=== PATIENT | female | born 1950 | race Caucasian/White ===

== ENCOUNTER → 2019-10-14 09:52 | Outpatient (BNVA) | payer MEDICARE, OTHER, SELFPAY | PROVIDERS: Family Provider Nurse Practitioner Family; Visit Provider Nurse Practitioner | DX: M25.571 Pain in right ankle and joints of right foot (principal); M85.88 Other specified disorders of bone density and structure, other site; M85.871 Other specified disorders of bone density and structure, right ankle and foot | CPT/HCPCS: 73610; 73630 ==

== ENCOUNTER 2020-03-16 11:11 | Inpatient (IN) | payer MEDICARE, OTHER, SELFPAY ==
--- NOTE | 2020-03-16 11:20 | XR_ITS ---
WS: [id number] EXAM: AP CHEST: PORTABLE UPRIGHT DATE OF EXAM: 03/16/2020, 1131 hours COMPARISON: NONE HISTORY: Patient is 69 years old with shortness of breath. FINDINGS: The cardiac silhouette is considered upper limits of normal to minimally enlarged. The mediastinal contours are normal. The pulmonary vascularity is normal. Scattered calcified granulomas changes seen in both lungs. Slight chronic lung changes are demonstrated. Lungs are clear of a large area of consolidation. Presumed some minimal atelectasis versus prominent pericardial fat pad left heart bord er. There is no effusion or pneumothorax. Scattered changes of arthritis are seen in the spine. XR/XR chest 1V portable [id number] IMPRESSION: Borderline to mild cardiomegaly. Either prominent pericardial fat pad versus at electasis in the lingula. Lungs otherwise clear. No pulmonary edema.
--- NOTE | 2020-03-16 11:20 | ECG_ITS ---
[facility] Test Date: 2020-03-16 Pat Name: Elba Han Department: Room: Gender: Female Contract Loader: : 1950 Requested By: Ezio Fay Order Number: [id number] Jaspal MD: Bella Aly M.D. Measurements Intervals [place] Rate: 53 P: 58 ME: 214 QRS: 17 QRSD: 99 T: 26 QT: 466 QTc: 440 Interpretive Statements SINUS BRADYCARDIA WITH FIRST DEGREE AV BLOCK No previous ECG available for comparison Electronically Signed On 03-16-2020 19:41:57 CDT by Bella Aly M.D. [email or web address]/[id number]
[2020-03-16 11:21] VITALS: BP 135/91; PULSE 58; RESP 14; TEMP 36.8; O2SAT 99; BMI 27.8
--- NOTE | 2020-03-16 11:42 | ED_ITS ---
HPI - Chest Pain General: Chief Complaint: Chest Pain Stated Complaint: CHEST PAIN Time Seen by Provider: 03/16/20 11:20 History of Present Illness: HPI narrative: 69-year-old female comes in today with complaint of chest pain she was at 1 of the local clinics and had an EKG that showed A. fib and she was sent in by EMS. States she began to have chest pain this morning while she was walking around the house she was not doing anything heavily exertional at that time. She had pain that was lower sternal and radiated into her back she was diaphoretic nauseous and dyspneic this resolved spontaneously she has not had any previous cardiac evaluation. She is not currently having any chest pain. MD complaint: chest pain Onset (ago): minute(s) Timing of current episode: episodic Prior episodes: No Onset: during exertion (Mild) Pain location: substernal Pain radiation: back Severity: mild Quality: tightness Relieving factors: rest Exacerbating factors: nothing Associated symptoms: Deny abdominal pain, diaphoresis, dyspnea, fever(s), leg edema, nausea, palpitations, sense of impending doom, syncope or vomiting Treatment prior to arrival: none Review of Systems Const: Denies: fever(s) or diaphoresis ENMT: Denies: throat pain, ear or mastoid pain, nasal discharge or nasal congestion Card: Denies: palpitations or syncope Resp: Denies: dyspnea GI: Denies: abdominal pain, nausea or vomiting : Denies: flank pain, difficulty voiding, dysuria, urinary frequency or urinary urgency Skin/Breast: Denies: rash or pruritus PFS ED PFSH: Medical History Hypertension Seasonal allergies Surgical History History of appendectomy History of back surgery History of hysterectomy Family History Other Cancer Heart disease Denies family history of Bleeding disorder Social History Smoking and tobacco status: never smoked Second hand smoke exposure: No Smoking risk assessment/counseling performed?: No Alcohol intake: never Desire information about alcohol rehabilitation?: No Counseling given: No Desire information about substance/drug rehabilitation?: No Counseling given: No Adopted: No Caregiver/support person: No Lives independently: Yes Household members: none Housing: House Marital status: Single service: No Current occupational status: employed History of recent travel: No Current gender identity: Female Physical Exam Const: COMMON NORMALS: no acute distress GENERAL APPEARANCE: cooperative and comfortable ORIENTATION/CONSCIOUSNESS: Yes awake, Yes oriented to person, Yes oriented to place and Yes oriented to time HENMT: COMMON NORMALS: normocephalic, atraumatic and hearing grossly normal bilaterally HEAD & SCALP: normocephalic and atraumatic Eye: COMMON NORMALS: Equal, round and reactive pupils present, EOMs intact bilaterally, conjunctivae normal and no scleral icterus CONJUNCTIVA: Yes conjunctivae normal PUPIL: Yes Equal, round and reactive pupils present Neck/C-Spine: COMMON NORMALS: full ROM, no lymphadenopathy, supple and no JVD Lymph: LYMPHATIC: no lymphadenopathy noted and no lymphedema noted Resp: COMMON NORMALS: normal respiratory effort, No retractions, No use of accessory muscles and clear to auscultation bilaterally AUSCULTATION: clear to auscultation bilaterally Cardio: COMMON NORMALS: no JVD, regular rate, regular rhythm and No murmurs present (Cardio) RATE: regular rate RHYTHM: regular rhythm GI: COMMON NORMALS: Soft to palpation and No hepatosplenomegaly present AUSCULTATION: Yes normoactive bowel sounds PALPATION: Yes Soft to palpation, No Tenderness to palpation present (GI), No Guarding due to palpation present (GI) and Yes No hepatosplenomegaly present Extremity: COMMON NORMALS: normal to inspection, capillary refill normal, no clubbing, cyanosis or edema, no calf tenderness and no pedal edema Neuro: SENSORIUM/ORIENTATION: Yes oriented to person, Yes oriented to place and Yes oriented to time Skin: COMMON NORMALS: no rashes or lesions noted GENERAL SKIN EXAM: no rashes or lesions noted Course Vital Signs: Vital signs: Vital Signs Temperature 98.3 F 03/16/20 11:21 Pulse Rate 55 L 03/16/20 12:35 Respiratory Rate 18 03/16/20 12:35 Blood Pressure 125/67 03/16/20 12:35 Pulse Oximetry 99 03/16/20 12:35 MDM - Chest Pain MDM Narrative: Medical decision making narrative: Initially was planning to discharge her home however when went back to talk to her again stated that the pain that she had initially was 10 of 10 resolved ~1 after the sublingual nitro. She did have a Nitropaste along I took that off most of her pain is epigastric liver enzymes slightly elevated but she does not have an elevated T bili. Discussed Dr. Mackey will admit for complete rule out and will also get a gallbladder ultrasound. Lab Data: Labs: Lab Results 03/16/20 03/16/20 03/16/20 Range/Units 11:35 11:35 11:35 WBC 12.9 H (4.0-10.0) 10^3/ uL RBC 4.16 (4.1-5.3) 10^6/u L Hgb 11.4 L (11.5-15.3) g/dL Hct 36.3 L (37.0-47.0) % MCV 87.3 (81-99) fL MCH 27.4 L (28.0-34.0) pg MCHC 31.4 (30.0-36.0) g/dL RDW 14.0 (12.1-15.1) % Plt Count 354 (130-400) 10^3/c mm MPV 8.9 (7.4-10.4) fL Neut % (Auto) 78.6 % Lymph % (Auto) 13.0 % Ida % (Auto) 5.7 % Eos % (Auto) 1.7 % Baso % (Auto) 0.5 % Neut # (Auto) 10.14 H (1.8-7.7) 10^3/u L Lymph # (Auto) 1.7 (0.8-4.8) 10^3/u L Ida # (Auto) 0.7 (0.2-0.9) 10^3/u L Eos # (Auto) 0.2 (0.0-0.8) 10^3/u L Baso # (Auto) 0.1 (0.0-0.1) 10^3/u L Nucleated RBC % (a uto) 0 % Nucleated RBCs # 0.0 /100WBC Sodium 141 (136-145) mmol/L Potassium 4.1 (3.5-5.1) mmol/L Chloride 105 (98-107) mmol/L Carbon Dioxide 24 (22-29) mmol/L Anion Gap 16.1 (5-19) BUN 21 (8-23) mg/dL Creatinine 0.7 (0.5-0.9) mg/dL GFR Calculation 82.7 L (90-130) mL/min Glucose 115 (65-115) mg/dL Calculated Osmolal ity 296 H (285-295) mOsm/k g Calcium 8.9 (8.5-10.5) mg/dL Total Bilirubin 0.7 (0.15-1.2) mg/dL AST 233 H (0-32) U/L ALT 99 H (0-33) U/L Alkaline Phosphata se 114 H (35-105) IU/L Troponin T Baselin e 7 (0-10) ng/L Troponin T 120 Min [place] (0-10) ng/L Delta Troponin T (0-10) ABS# Total Protein 6.4 L (6.6-8.7) g/dL Albumin 3.9 (3.5-5.2) g/dL Globulin 2.5 (1.3-4.6) g/dL 03/16/20 Range/Units 13:32 WBC (4.0-10.0) 10^3/ uL RBC (4.1-5.3) 10^6/u L Hgb (11.5-15.3) g/dL Hct (37.0-47.0) % MCV (81-99) fL MCH (28.0-34.0) pg MCHC (30.0-36.0) g/dL RDW (12.1-15.1) % Plt Count (130-400) 10^3/c mm MPV (7.4-10.4) fL Neut % (Auto) % Lymph % (Auto) % Ida % (Auto) % Eos % (Auto) % Baso % (Auto) % Neut # (Auto) (1.8-7.7) 10^3/u L Lymph # (Auto) (0.8-4.8) 10^3/u L Ida # (Auto) (0.2-0.9) 10^3/u L Eos # (Auto) (0.0-0.8) 10^3/u L Baso # (Auto) (0.0-0.1) 10^3/u L Nucleated RBC % (a uto) % Nucleated RBCs # /100WBC Sodium (136-145) mmol/L Potassium (3.5-5.1) mmol/L Chloride (98-107) mmol/L Carbon Dioxide (22-29) mmol/L Anion Gap (5-19) BUN (8-23) mg/dL Creatinine (0.5-0.9) mg/dL GFR Calculation (90-130) mL/min Glucose (65-115) mg/dL Calculated Osmolal ity (285-295) mOsm/k g Calcium (8.5-10.5) mg/dL Total Bilirubin (0.15-1.2) mg/dL AST (0-32) U/L ALT (0-33) U/L Alkaline Phosphata se (35-105) IU/L Troponin T Baselin e (0-10) ng/L Troponin T 120 Min [place] 6.38 (0-10) ng/L Delta Troponin T -0.62 L (0-10) ABS# Total Protein (6.6-8.7) g/dL Albumin (3.5-5.2) g/dL Globulin (1.3-4.6) g/dL Discharge Plan Discharge Patient Disposition: Placed in Observation Clinical Impression: Atypical chest pain, Elevated LFTs Condition: Stable Referrals: Estrella Jakcson APN [Family Provider] - Additional Instructions: Case management will call to schedule 24-hour Holter. Follow-up with your primary care doctor within the week. Coding Level of Care Code ED Payroll Benefits Administrator for Chg Fwd Exam Comprehensive
[2020-03-16 11:55] LABS: Basophils # 0.1 10^3/uL (0.0-0.1); Basophils % 0.5 %; Eosinophils # 0.2 10^3/uL (0.0-0.8); Eosinophils % 1.7 %; Hematocrit 36.3 % (37.0-47.0); Hemoglobin 11.4 g/dL (11.5-15.3); Lymphocytes # 1.7 10^3/uL (0.8-4.8); Mean Corpuscular HGB Conc 31.4 g/dL (30.0-36.0); Mean Corpuscular Hemoglobin 27.4 pg (28.0-34.0); Mean Corpuscular Volume 87.3 fL (81-99); Mean Platelet Volume 8.9 fL (7.4-10.4); Monocytes # 0.7 10^3/uL (0.2-0.9); Monocytes % 5.7 %; Neutrophils # 10.14 10^3/uL (1.8-7.7); Neutrophils % 78.6 %; Nucleated Red Blood Cells % 0 %; Platelet Count 354 10^3/cmm (130-400); Red Blood Count 4.16 10^6/uL (4.1-5.3); White Blood Count 12.9 10^3/uL (4.0-10.0)
[2020-03-16 12:11] LABS: Alanine Aminotransferase 99 U/L (0-33); Albumin Level 3.9 g/dL (3.5-5.2); Alkaline Phosphatase 114 IU/L (35-105); Anion Gap 16.1 (5-19); Aspartate Amino Transferase 233 U/L (0-32); Blood Urea Nitrogen 21 mg/dL (8-23); Calcium 8.9 mg/dL (8.5-10.5); Carbon Dioxide 24 mmol/L (22-29); Chloride 105 mmol/L (98-107); Globulin 2.5 g/dL (1.3-4.6); Glomerular Filtration Rate 82.7 mL/min (90-130); Glucose 115 mg/dL (65-115); Osmolality Calculated 296 mOsm/kg (285-295); Potassium 4.1 mmol/L (3.5-5.1); Sodium 141 mmol/L (136-145); Total Bilirubin 0.7 mg/dL (0.15-1.2); Total Protein 6.4 g/dL (6.6-8.7)
[2020-03-16 12:13] LABS: Troponin(5th) Baseline 7 ng/L (0-10)
[2020-03-16 12:35] VITALS: BP 125/67; PULSE 55; RESP 18; O2SAT 99
--- NOTE | 2020-03-16 13:20 | ECG_ITS ---
[facility] Test Date: 2020-03-16 Pat Name: Elba Han Department: Room: Gender: Female Sales Relationship Manager: : 1950 Requested By: Ezio Fay Order Number: [id number] Jaspal MD: Bella Aly M.D. Measurements Intervals [place] Rate: 50 P: 41 MT: 240 QRS: 10 QRSD: 94 T: 23 QT: 478 QTc: 436 Interpretive Statements SINUS BRADYCARDIA WITH FIRST DEGREE AV BLOCK Compared to ECG 03/16/2020 12:21:42 No significant changes Electronically Signed On 03-16-2020 19:43:39 CDT by Bella Aly M.D. [id number]
[2020-03-16 13:56] LABS: Troponin 5 2HR 6.38 ng/L (0-10)
[2020-03-16 13:57] LABS: Troponin 5 2HR Delta -0.62 ABS# (0-10)
[2020-03-16 15:10] VITALS: BP 139/82; PULSE 61; RESP 16; O2SAT 95
[2020-03-16 15:14] VITALS: BP 139/82; PULSE 59; RESP 16; O2SAT 97
--- NOTE | 2020-03-16 15:20 | P.HP_ITS ---
Providers/Chief Complaint Admitting Physician: Lucille Mackey MD Chief Complaint: CHEST PAIN History of Present Illness Elba Han is a 69 year old female with a past medical history of hypertension, who was cooking in the kitchen this morning at around 8 AM when she developed sudden onset of chest pain in the middle of the chest. She describes it as a pressure, 10 out of 10. She immediately had to sit down, was diaphoretic, had some radiation into her back. No radiation into the neck jaw or the arm. When the pain did not resolve she presented to her primary care doctor's office where an EKG was taken and there was a question if she may be having atrial fibrillation. She was given some nitro pills following which the pain improved significantly. At this present time it is down to 1 out of 10. She was given some more nitro while on her way here by the EMS. She is also received an aspirin 325 mg stat. Upon presentation here her EKG was performed which showed sinus bradycardia with first-degree AV block, without any acute ST- T wave changes. Her troponins were also drawn and thus far up until the 2-hour diane are without significant delta's. She states she has not experienced such pain before, however has noticed over the past year she has some palpitation- like episodes in the evening which subsided by itself. She believes it may be related to taking her blood pressure medicine. Upon presentation to her primary care's office today her blood pressure was 180/100. Since presentation to the ER it is been between 1 30-1 50 systolic. She does not have any pain at this present time. Labs were also notable for elevated AST ALT and alkaline phosphatase of unclear duration. She reports that over the past few months she has been experiencing increased epigastric pain on taking spicy foods. Often resolved with antacids. There is no history of diabetes, hyperlipidemia, smoking or alcohol consumption. Review of Systems General: Reports: 10 or more systems reviewed and unremarkable except in HPI and below Const: Denies: fever(s), chills or body aches Eyes: Denies: change in vision, blurry vision or photophobia ENMT: Reports: hoarseness; Denies: throat pain, enlarged tonsils, odynophagia or nasal congestion Card: Denies: chest pain, palpitations, irregular heart rhythm, edema, swelling of feet/ankles, lightheadedness, pre-syncope, dyspnea on exertion or orthopnea Resp: Denies: dyspnea, productive cough, non-productive cough, wheezing, stridor, pain on inspiration, change in phlegm color, hemoptysis or chest congestion GI: Denies: abdominal pain, nausea, vomiting, hematemesis, coffee ground emesis, dysphagia, heartburn, diarrhea, constipation, GI cramping, change in stool character, hematochezia or melena : Denies: flank pain, difficulty voiding, dysuria, urinary frequency, urinary urgency, urinary hesitancy or hematuria Musc: Denies: neck pain, back pain, extremity pain, joint swelling, joint warmth or deformity Neuro: Denies: headache(s), numbness in extremities, weakness in extremities, sensory changes, difficulty walking, frequent falls, dizziness, vertigo, behavioral changes, Slurred speech present or seizure-like activity Psych: Denies: anxiety, depression, suicidal ideation or homicidal ideation Endo: Denies: polyuria, polydipsia, tired all the time, cold intolerance or hot flashes Amado/Lymph: Denies: easy bruising or easy bleeding Medications/Allergies Home Medications Medication Instructions Recorded Confirmed Last Taken Type alprazolam 0.5 mg tablet 0.5 mg PO DAILY PRN 10/13/19 03/16/20 03/16/20 History aspirin 81 mg PO DAILY 03/16/20 03/16/20 03/16/20 History chlorpheniramine-phenylephrine 1 tab PO Q4H PRN 03/16/20 03/16/20 03/16/20 History [Sinus and Allergy PE] fluticasone propionate See Rx Instructions .ROUTE .COMPLEX 03/16/20 03/16/20 Unknown History ibuprofen 200 - 400 mg PO Q4H PRN 03/16/20 03/16/20 Unknown History metoprolol succinate [Toprol XL] 25 mg PO DAILY #30 tab 03/16/20 Unknown Rx tramadol 50 mg PO TID PRN 03/16/20 03/16/20 Unknown History Allergies Allergy/AdvReac Type Severity Reaction Status Date / Time No Known Allergies Allergy Verified 10/13/19 14:37 PFSH Acute PFSH: Medical History Hypertension Seasonal allergies Surgical History History of appendectomy History of back surgery History of hysterectomy Family History Other Cancer Heart disease Denies family history of Bleeding disorder Social History Smoking and tobacco status: never smoked Second hand smoke exposure: No Smoking risk assessment/counseling performed?: No Alcohol intake: never Desire information about alcohol rehabilitation?: No Counseling given: No Desire information about substance/drug rehabilitation?: No Counseling given: No Adopted: No Caregiver/support person: No Lives independently: Yes Household members: none Housing: House Marital status: Single service: No Current occupational status: employed History of recent travel: No Current gender identity: Female Vitals/I&O/Wt Last Vital Signs Temp 98.3 F 03/16/20 11:21 Pulse 59 L 03/16/20 15:14 Resp 16 03/16/20 15:14 BP 139/82 03/16/20 15:14 Pulse Ox 97 03/16/20 15:14 Weight last 48 hrs Weight 73.482 kg Physical Exam Const: COMMON NORMALS: no acute distress, average body habitus, patient oriented x3, no limitations, healthy appearing, alert and well nourished HENMT: COMMON NORMALS: normocephalic and atraumatic Eye: COMMON NORMALS: Equal, round and reactive pupils present, EOMs intact bilaterally, conjunctivae normal and no scleral icterus Resp: COMMON NORMALS: normal respiratory effort, No retractions, No use of accessory muscles, clear to auscultation bilaterally and percussion normal Cardio: COMMON NORMALS: no JVD, regular rate, regular rhythm, S1 normal heart sound present, S2 normal heart sound present, No gallops present (Cardio), No clicks present (Cardio), No murmurs present (Cardio), No rub (Cardio) and Peripheral pulses 2+ throughout GI: COMMON NORMALS: Normal to inspection, nondistended, normoactive bowel sounds present, Soft to palpation, non-tender, No hepatosplenomegaly present, no masses and no bruits Extremity: COMMON NORMALS: normal to inspection, full ROM, capillary refill normal, no joint enlargement, no clubbing, cyanosis or edema, no calf tenderness and no pedal edema Neuro: COMMON NORMALS: patient oriented x3, CN's II-XII intact bilaterally, moves all extremities, no focal motor deficits, no sensory deficits noted, deep tendon reflexes 2+ bilaterally and gait normal Psych: COMMON NORMALS: mental status grossly normal, Normal thought process present, cooperative, normal affect, speech normal, activity/motor behavior normal, denies hallucinations, denies homicidal ideation and denies suicidal ideation Skin: COMMON NORMALS: no rashes or lesions noted, no wounds, turgor normal, no jaundice, no petechiae and no mottling Data : 03/16/20 11:35 03/16/20 11:35 A&P Assessment and plan (1) Chest pain: Status: Acute (2) Elevated LFTs: Status: Acute (3) Hypertension: Status: Acute Additional A&P Information #Chest pain EKG shows sinus bradycardia with first-degree AV block. Troponins without significant delta type II hour. Continue to trend at 6-hour. Already received aspirin 325 mg. Continue aspirin 81 mg daily. Add atorvastatin 40 mg p.o. daily. Continue home medication Toprol-XL, however reduced dose to 12.5 p.o. daily given bradycardia with heart rate 50. Echocardiogram Patient has some risk factors for cardiac disease including hypertension and age at 69 years which may be uncontrolled since it was at 180 today at her PCPs office. Will order stress test for tomorrow morning as her symptoms do appear concerning for angina type chest pain. #Transaminitis with AST ALT elevated, unclear etiology. Check hepatitis panel Also check ultrasound of the gallbladder as patient has been complaining of ongoing epigastric pain and cholecystitis may sometimes mimic chest pain. However possibility of this is low as I do not appreciate any Gomez sign, abdominal tenderness, there is no fever or vomiting. #Hypertension: Continue Toprol for now. Monitor blood pressure. Nitro bid has been added for as needed chest pain control which will also affect sure. Full code Low risk DVT therefore Lovenox not added Attestations Medical Necessity Statement*: In observation for work-up of chest pain, stress test in the morning.Anticipate less than 2 midnight admission Coding Level of Care Code Acute Drilling Machine Runner for [facility] Fwd Diagnoses Chest pain R07.9 Elevated LFTs R79.89 Hypertension I10
[2020-03-16 15:33] VITALS: BP 153/78; PULSE 52; RESP 15; TEMP 36.7; O2SAT 96
--- NOTE | 2020-03-16 15:50 | US_ITS ---
WS: [id number] EXAM: RIGHT UPPER QUADRANT ULTRASOUND DATE OF EXAMINATION: 03/16/2020, 1649 hours COMPARISON: None. HISTORY: 69 years old with right upper quadrant pain. FINDINGS: Visualized pancreas is normal in appearance. Proximal inferior vena cava and aorta are normal in caliber. Liver echotexture is coarsened with increased echogenicity suggesting diffuse fatty infiltration. No solid mass within the liver seen. There is a cyst in the area of the gallbladder hilum 3.5 x 1.9 x 3. 2 cm in size. Focal fatty sparing along the gallbladder hilum. Portal venous flow is demonstrated by color flow and spectral Doppler with flow toward the liver. Gallbladder is normally distended. Intraluminal shadowing stones are identified. No gallbladder wall thickening. No pericholecystic fluid. Common bile duct diameter is estimated at 6 mm in maximum transverse caliber. The right kidney is estimated at 10.2 x 5.1 x 4.3 cm in size. Cortical thickness and echotexture are normal. No mass or obstructive uropathy is seen. US/US gall bladder [id number] IMPRESSION: Imaging findings felt to represent fairly diffuse fatty infiltration in the alma er. Cholelithiasis without findings of cholecystitis. Common bile duct 6 mm in transverse caliber. Simple cysts in the liver along the gallbladder fossa. Focal fatty sparing in t he area of the gallbladder fossa.
[2020-03-16 16:01] LABS: Chol HDL Ratio 2.23 mg/dL (0.0-4.40); Cholesterol 143 mg/dL (0-200); HDL Cholesterol 64 mg/dL (60-100); LDL Cholesterol Calculated 67 mg/dL (50-129); LDL HDL Ratio 1.05 RATIO (0.00-3.22); Thyroid Stimulating Hormone 0.82 uIU/mL (0.27-4.20); Triglycerides 60 mg/dL (0-150)
--- NOTE | 2020-03-16 17:20 | ECG_ITS ---
[facility] Test Date: 2020-03-16 Pat Name: Elba Han Department: Room: 112 Gender: Female Integration Developer: : 1950 Requested By: Ezio Fay Order Number: [id number] Jaspal MD: Bella Aly M.D. Measurements Intervals [place] Rate: 55 P: 18 RI: 235 QRS: -2 QRSD: 93 T: -1 QT: 450 QTc: 432 Interpretive Statements SINUS BRADYCARDIA WITH FIRST DEGREE AV BLOCK LOW QRS VOLTAGE IN PRECORDIAL LEADS [QRS DEFLECTION < 1.0 mV IN CHEST LEADS] MINIMAL VOLTAGE CRITERIA FOR LVH, CONSIDER NORMAL VARIANT [MEETS CRITERIA IN ONE OF: R(aVL), S(V1), R(V5), R(V5/V6)+S(V1)] Compared to ECG 03/16/2020 14:10:12 Low QRS voltage now present Electronically Signed On 03-16-2020 19:43:53 CDT by Bella Aly M.D. [id number]
[2020-03-16 17:29] LABS: D Dimer 0.59 ug/mIFEU (0-0.59)
[2020-03-16 17:33] LABS: Estmated Average Glucose 117; Hemoglobin A1C 5.7 % (4.0-6.0)
--- NOTE | 2020-03-16 19:17 | PC.NURSE ---
Rounding: Patient resting in bed. Easily awakened. Patient denies any pain. Patient remains alert and oriented. Will continue to monitor.
[2020-03-16 20:00] VITALS: BP 130/63; PULSE 66; RESP 19; TEMP 36.8; O2SAT 93
[2020-03-17] VITALS (8 sets, daily range): BP systolic 138–182; BP diastolic 70–94; PULSE 52–77; RESP 11–20; TEMP 36.4–36.8; O2SAT 94–99
[2020-03-17 00:55] LABS: Hepatitis A Antibody IgM Non-Reactive (Nonreactive); Hepatitis B Core AB, Total Non-Reactive (Nonreactive); Hepatitis B Surface AB 562.7 (0-8.5); Hepatitis B Surface Antigen Non-Reactive (Nonreactive); Hepatitis C Virus Antibody Non-Reactive (Nonreactive)
[2020-03-17 05:11] LABS: Basophils # 0.1 10^3/uL (0.0-0.1); Basophils % 1.1 %; Eosinophils # 0.4 10^3/uL (0.0-0.8); Eosinophils % 5.6 %; Hematocrit 36.3 % (37.0-47.0); Hemoglobin 11.3 g/dL (11.5-15.3); Lymphocytes # 2.2 10^3/uL (0.8-4.8); Lymphocytes % 29.4 %; Mean Corpuscular HGB Conc 31.1 g/dL (30.0-36.0); Mean Corpuscular Hemoglobin 27.8 pg (28.0-34.0); Mean Corpuscular Volume 89.2 fL (81-99); Mean Platelet Volume 9.2 fL (7.4-10.4); Monocytes # 0.5 10^3/uL (0.2-0.9); Monocytes % 7.2 %; Neutrophils # 4.11 10^3/uL (1.8-7.7); Neutrophils % 56.2 %; Nucleated Red Blood Cells % 0 %; Platelet Count 325 10^3/cmm (130-400); Red Blood Count 4.07 10^6/uL (4.1-5.3); Red Cell Distribution Width 14.2 % (12.1-15.1); White Blood Count 7.3 10^3/uL (4.0-10.0)
[2020-03-17 05:49] LABS: Alanine Aminotransferase 270 U/L (0-33); Albumin Level 3.4 g/dL (3.5-5.2); Alkaline Phosphatase 118 IU/L (35-105); Anion Gap 11.7 (5-19); Aspartate Amino Transferase 258 U/L (0-32); Blood Urea Nitrogen 18 mg/dL (8-23); Calcium 8.7 mg/dL (8.5-10.5); Carbon Dioxide 24 mmol/L (22-29); Chloride 109 mmol/L (98-107); Globulin 2.8 g/dL (1.3-4.6); Glomerular Filtration Rate 82.7 mL/min (90-130); Glucose 110 mg/dL (65-115); Osmolality Calculated 295 mOsm/kg (285-295); Potassium 3.7 mmol/L (3.5-5.1); Sodium 141 mmol/L (136-145); Total Bilirubin 0.2 mg/dL (0.15-1.2); Total Protein 6.2 g/dL (6.6-8.7)
--- NOTE | 2020-03-17 06:27 | ECG_ITS ---
[facility] Test Date: 2020-03-17 Pat Name: Elba Han Department: Room: 112 Gender: Female Audio Video Mechanic: : 1950 Requested By: Lucille Mackey Order Number: [id number] Jaspal MD: Leana Neal M.D. Interpretive Statements NAME OF STUDY: LEXISCAN SESTAMIBI STRESS TEST INDICATION: Chest Pain PROCEDURE: At the baseline, the blood pressure was 192/93 mmHg with a heart rate of 55 bpm and oxygen saturation 93%. The electrocardiogram showed sinus bradycardia with first degree AV block. Artifact. The Lexiscan was infused over a period of 20 seconds. A total of 0.4 milligrams of Lexiscan was infused. The stress phase was continued for a total of 5 minutes. Heart rate at the end of the stress phase was 79 bpm, oxygen saturation 96% with a blood pressure of 157/86 mmHg. The EKG at the peak infusion revealed sinus rhythm with no significant ST-T wave chnages. Sestamibi was injected 20 seconds after the Lexiscan infusion. Blood pressure at the end of the recovery phase was 154/85 mmHg, oxygen saturation 96% with a heart rate of 79 beats per minute. CONCLUSION: 1. No significant EKG changes with the LexiScan infusion. 2. No LexiScan induced chest pain or cardiac arrhythmia. 3. Baseline hypertension with normal blood pressure and heart rate response. 4. Sestamibi/sestamibi perfusion scan pending; see separate report. Electronically Signed On 03-17-2020 14:37:33 CDT by Leana Neal M.D. [id number]
--- NOTE | 2020-03-17 07:00 | USCV_ITS ---
Elba Han Age: 69 Gender: F : 1950 Exam Date: 03/17/2020 07:05 Ordering Phys: Lucille Mackey MD Technologist: Sophie Smlal Exam Location: [facility] [place] Indication: ANGINA BP: 143 / 77 HR: 53 Rhythm: Sinus Technical Quality: Adequate MEASUREMENTS (Male / Female) Normal Values 2D ECHO LV Diastolic Diameter PLAX 3.7 cm 4.2 - 5.9 / 3.9 - 5.3 cm LV Systolic Diameter PLAX 2.8 cm LV Chamber Size 3.4 cm IVS Diastolic Thickness 1.1 cm 0.6 - 1.0 / 0.6 - 0.9 cm IVS Systolic Thickness 1.2 cm LVPW Diastolic Thickness 1.8 cm 0.6 - 1.0 / 0.6 - 0.9 cm LVPW Systolic Thickness 1.9 cm RV Chamber Size 2.8 cm LVOT Diameter 2.1 cm LV Ejection Fraction 2D Teich 49.1 % LV Ejection Fraction MOD 2C 64.5 % LV Ejection Fraction 2C AL 64.3 % LA Diameter 4.5 cm LA Width 2.8 cm LA Height 3.9 cm RA Width 2.8 cm RA Height 4.0 cm Aorta at Sinotubular Diameter 3.4 cm M-MODE LV Diastolic Diameter MM 5.3 cm 4.2 - 5.9 / 3.9 - 5.3 cm LV Systolic Diameter MM 2.9 cm LV Ejection Fraction MM Teich 75.9 % IVS Diastolic Thickness MM 0.8 cm 0.6 - 1.0 / 0.6 - 0.9 cm IVS Systolic Thickness MM 1.3 cm LVPW Diastolic Thickness MM 1.1 cm 0.6 - 1.0 / 0.6 - 0.9 cm LVPW Systolic Thickness MM 1.8 cm Aortic Annulus Diameter 3.5 cm LA Ao Ratio MM 1.3 MV E Point Septal Separation 0.3 cm DOPPLER AV Peak Velocity 126.0 cm/s LVOT Peak Velocity 98.0 cm/s AV Area Cont Eq vti 3.1 cm squared AV Area Cont Eq pk 2.6 cm squared MV Area PHT 3.3 cm squared Mitral E to A Ratio 1.4 MV E' Velocity 10.0 cm/s Mitral E to MV E' Ratio 9.3 Mitral E to LV E' Lateral Ratio 9.4 Mitral E to LV E' Septal Ratio 9.1 TR Peak Velocity 125.0 cm/s TR Peak Gradient 6.3 mmHg TV Peak E Velocity 47.0 cm/s Right Atrial Pressure 3.0 mmHg Pulmonary Artery Systolic Pressu 9.3 mmHg PV Peak Velocity 85.0 cm/s RV Acceleration Time 0.1 s RV Ejection Time 0.4 s RV AcT/ET 0.3 FINDINGS Left Ventricle Normal left ventricular size, systolic function and upper normal wall thickness, with no regional wall motion abnormalities. Left ventricular ejection fraction is estimated at 60 %. Normal diastolic function. Right Ventricle Normal right ventricular size and systolic function. Right ventricular systolic pressure 9.3 mmHg. Right Atrium Normal right atrial size. Right atrial size estimated at 3 mmHg. Left Atrium Normal left atrial size. Mitral Valve Structurally normal mitral valve. No mitral valve stenosis. Trace mitral valve regurgitation. Aortic Valve Aortic valve not well visualized. No aortic valve stenosis. No aortic valve regurgitation. Tricuspid Valve Structurally normal tricuspid valve. Trace tricuspid valve regurgitation. Pulmonic Valve Pulmonic valve not well visualized. Trace pulmonary valve regurgitation. Pericardium Normal-sized inferior vena cava. Aorta Normal-sized aortic root. CONCLUSIONS 1. Normal left ventricular size, systolic function and wall thickness, with no regional wall motion abnormalities. Left ventricular ejection fraction is estimated at 60 %. Normal diastolic function. 2. Normal right ventricular size and systolic function. 3. Right atrial size estimated at 3 mmHg. 4. Normal pulmonary artery pressure. 5. No significant valvular abnormality. 6. No prior similar studies to compare. Leana Neal MD (Electronically Signed) Final Date: 17 March 2020 14:20 S
--- NOTE | 2020-03-17 07:49 | PC.NURSE ---
to cardiac stress test at this time
[2020-03-17] MEDS: regadenoson 0.4 Mg/5 ml Syringe IVP (08:29)
[2020-03-17] MEDS: aspirin 81 mg EC Tablet PO (09:52)
[2020-03-17] MEDS: metoprolol succinate ER (24 HR) 25 mg Tablet 12.5 MG PO (09:52)
--- NOTE | 2020-03-17 09:54 | PC.NURSE ---
return from cardiac stress test.bp elevated.c/o slight headache.metoprolol given as scedualed.refuses tylenol.
[2020-03-17] MEDS: ondansetron 2 mg/ML SDV 2 mL 4 MG IVP (11:30)
[2020-03-17] MEDS: ALPRAZolam 0.5 mg Tablet PO ×2 (11:33→20:20)
[2020-03-17] MEDS: nitroglycerin 1 gm/inch oint Pkt 0.5 INCH TOPICAL (11:49)
--- NOTE | 2020-03-17 11:52 | PC.NURSE ---
pt states she feels nauseated and has pressure in her right chest and neck.bp elevated-207/98.hr low 50's.dr lazo notified.ordered to apply ntg paste and see how bp does.zofran given for nausea.pt states she takes xanax twice daily with her metoprolol.this is ordered prn...so dose now given.
[2020-03-17] MEDS: acetaminophen 325 mg Tablet 650 MG PO ×2 (12:00→20:20)
--- NOTE | 2020-03-17 13:41 | PC.NURSE ---
pt states she does feel a little better now.bp has decreased to 168/80.no nausea.still has a tightness in right neck area.dr bear (cardiology ) has been consulted for abnormal stress test.pt instructed to notify staff for any sob,cp or increase in chest/neck tightness.pt verb understanding of instructions.
--- NOTE | 2020-03-17 14:33 | P.CONIM_ITS ---
Providers/Reason For Consult Consulting Physican/Specialty*: Dr. Neal, cardiology Reason for Consult*: Chest pain, depressed LV function Attending Physician: Lucille Mackey MD History of Present Illness History of Present Illness Elba Han is a 69 year old female with past medical history of hypertension and anxiety presented to the hospital for evaluation of chest pain. She was not feeling well when she woke up in the morning. She was in her kitchen yesterday morning when she developed heaviness in the center of her c hest along shortness of breath and some diaphoresis. She sat down and then lay the bed but symptoms persisted. Her blood pressure in the morning was systolically in 190s as per patient. Her daughter took her to primary care physician's office where her blood pressure was in 200s. EMS was called and she was sent to the hospital. She received some nitroglycerin and aspirin. Her pain resolved after arrival to the ER and she did well last night and this morning. After having her stress test when she lay on her left side she had some pain in her left upper chest and shoulder which was relieved with Tylenol. She does complain of intermittent episodes of palpitations and heart racing for the last few weeks on and off. She also complains of some shortness of breath on laying down and intermittent episodes of lower extremity edema. Her blood pressure has been running high for the past week. EKG showed sinus bradycardia with first-degree AV block with no significant ST-T wave changes. Baseline troponin of 7 at 1 5:40 0.3 and at 6 hours of 6. NT proBNP of 160. Total cholesterol 143, triglycerides 60, LDL 67 HDL 64. TSH 0.82. AST elevated at 233 and ALT 99. Alkaline phosphatase 114. She underwent myocardial perfusion imaging that showed normal perfusion but attenuation artifact and apex was noted. Transient ischemic dilation index of 1.17. Echocardiogram showed normal left ventricular size and systolic function with no regional wall motion abnormality. I have been asked to assist in further management of the patient. Review of Systems Const: Denies: fatigue Eyes: Denies: change in vision Card: Reports: chest pain (As in HPI); Denies: palpitations, irregular heart rhythm, edema, swelling of feet/ankles, lightheadedness, syncope, pre-syncope, dyspnea on exertion or orthopnea Resp: Reports: dyspnea; Denies: productive cough or non-productive cough GI: Denies: abdominal pain, nausea, vomiting, hematemesis, diarrhea, constipation or hematochezia : Denies: dysuria or hematuria Musc: Denies: back pain, extremity swelling, joint pain or muscle weakness Skin/Breast: Denies: rash Neuro: Denies: dizziness Psych: Denies: anxiety or depression Endo: Denies: tired all the time Amado/Lymph: Denies: easy bruising or easy bleeding Meds/Allergies Home Medications and Allergies Home Medications Medication Instructions Recorded Confirmed Last Taken Type alprazolam 0.5 mg tablet 0.5 mg PO DAILY PRN 10/13/19 03/16/20 03/16/20 History aspirin 81 mg PO DAILY 03/16/20 03/16/20 03/16/20 History chlorpheniramine-phenylephrine 1 tab PO Q4H PRN 03/16/20 03/16/20 03/16/20 History [Sinus and Allergy PE] fluticasone propionate See Rx Instructions .ROUTE .COMPLEX 03/16/20 03/16/20 Unknown History ibuprofen 200 - 400 mg PO Q4H PRN 03/16/20 03/16/20 Unknown History metoprolol succinate [Toprol XL] 25 mg PO DAILY #30 tab 03/16/20 Unknown Rx tramadol 50 mg PO TID PRN 03/16/20 03/16/20 Unknown History Allergies Allergy/AdvReac Type Severity Reaction Status Date / Time No Known Allergies Allergy Verified 10/13/19 14:37 Current Medications Current Medications Generic Name Dose Route Start Last Admin Trade Name Freq PRN Reason Stop Dose Admin Acetaminophen 650 mg 03/16/20 15:13 03/17/20 12:00 Tylenol PO 650 mg Q6H PRN Administration Mild/Mod Pain Or Temp >/= 101 Alprazolam 0.5 mg 03/16/20 15:18 03/17/20 11:33 Xanax PO 0.5 mg DAILY PRN Administration Anxiety Aspirin 81 mg 03/17/20 09:00 03/17/20 09:52 Aspirin Ec PO 81 mg DAILY [place] Administration Metoprolol Succinate 12.5 mg 03/17/20 09:00 03/17/20 09:52 Toprol Xl PO 12.5 mg DAILY [place] Administration Nitroglycerin 0.5 inch 03/16/20 15:19 03/17/20 11:49 Nitro-Bid TOPICAL 0.5 inch Q6H PRN Administration chest pain Ondansetron HCl 4 mg 03/16/20 15:50 03/17/20 11:30 Zofran IVP 4 mg Q6H PRN Administration NAUSEA AND VOMITING PFSH Acute PFSH: Medical History Hypertension Seasonal allergies Surgical History History of appendectomy History of back surgery History of hysterectomy Family History Other Cancer Heart disease Denies family history of Bleeding disorder Social History Smoking and tobacco status: never smoked Second hand smoke exposure: No Smoking risk assessment/counseling performed?: No Alcohol intake: never Desire information about alcohol rehabilitation?: No Counseling given: No Desire information about substance/drug rehabilitation?: No Counseling given: No Adopted: No Caregiver/support person: No Lives independently: Yes Household members: none Housing: House Marital status: Single service: No Current occupational status: employed History of recent travel: No Current gender identity: Female Vitals/I&O/Wt Last Vital Signs Temp 97.5 F L 03/17/20 12:00 Pulse 53 L 03/17/20 12:00 Resp 14 03/17/20 12:00 BP 167/93 03/17/20 12:00 Pulse Ox 94 03/17/20 12:00 03/16/20 03/17/20 03/17/20 22:59 06:59 14:59 Intake Total 480 / 480 600 / 1080 720 / 720 Balance 480 / 480 600 / 1080 720 / 720 Weight last 48 hrs Weight 162 lb Physical Exam Narrative: EXAM NARRATIVE: GENERAL: Averagely built and averagely nourished in no acute distress HEENT: Extraocular movement intact. Pupils equal round reactive to light. No pallor or icterus. NECK: central trachea, no JVD. No carotid bruit. CARDIOVASCULAR SYSTEM: S1-S2 regular. No S3 or S4 present. No murmur rubs or gallops. RESPIRATORY SYSTEM: Equal air entry bilaterally. Fine crackles in right posterior basal field. No wheezes or rhonchi. No use of accessory muscles. ABDOMEN: Soft, nontender and nondistended. Normal bowel sounds present. EXTREMITIES: No cyanosis or clubbing. No edema. No signs of chronic venous insufficiency. 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 No focal neurological deficits. SKIN: Normal turgor and temperature. PSYCH: Normal insight and judgment. Data Imaging^: Other Imaging: Radiologist's impression: Gallbladder ultrasound 16 March 2020 IMPRESSION: Imaging findings felt to represent fairly diffuse fatty infiltration in the liver. Cholelithiasis without findings of cholecystitis. Common bile duct 6 mm in transverse caliber. Simple cysts in the liver along the gallbladder fossa. Focal fatty sparing in the area of the gallbladder fossa. Echocardiogram 17 March 2020 CONCLUSIONS 1. Normal left ventricular size, systolic function and wall thickness, with no regional wall motion abnormalities. Left ventricular ejection fraction is estimated at 60 %. Normal diastolic function. 2. Normal right ventricular size and systolic function. 3. Right atrial size estimated at 3 mmHg. 4. Normal pulmonary artery pressure. 5. No significant valvular abnormality. 6. No prior similar studies to compare. Lexiscan sestamibi myocardial perfusion imaging (03/17/20) IMPRESSIONS 1. Normal myocardial perfusion imaging, attenuation artifact is noted in the apex. Given severely reduced LV function on stress and borderline TID, clinical correlation is required. Cannot rule out balanced ischemia 2. Severely reduced LV systolic function. EKG^: EKG 1: I personally reviewed and interpreted this EKG as follows: My Interpretation: EKG showed sinus bradycardia with first-degree AV block. No ST-T wave changes. With first-degree AV block with first-degree AV block. A&P Assessment and plan (1) Chest pain: Her blood pressure on arrival was 180/100 and has been running high with most recent numbers being 160/84. -Chest pain could be in setting of elevated blood pressure. -Patient does have CAD risk factors of age and hypertension. No History of CAD and is a non-smoker -I will optimize her blood pressure and assess her as an outpatient for further management. -I will start her on low-dose hydrochlorothiazide. Possibly add amlodipine if BP uncontrolled. Status: Acute Qualifiers: Chest pain type: unspecified Qualified Code(s): R07.9 - Chest pain, unspecified (2) Hypertension: Status: Acute Qualifiers: Hypertension type: essential hypertension Qualified Code(s): I10 - Ess ential (primary) hypertension (3) Elevated LFTs: Status: Acute Additional A&P Information Bradycardia: She is on low-dose metoprolol, may have to stop metoprolol Cholelithiasis Fatty liver Anxiety Seasonal allergies Thank you for allowing me to participate in patient's care. Please feel free to call with questions or concerns. Coding Level of Care Code Acute Certified Pest Control Technician for Tabithag Fwd Diagnoses Chest pain R07.9 Chest pain type: unspecified Hypertension I10 Hypertension type: essential hypertension Elevated LFTs R79.89
[2020-03-17 14:58] LABS: NT Pro B Type Natriuretic Pept 160 pg/mL (0-125)
--- NOTE | 2020-03-17 15:50 | NMCV_ITS ---
NM nani perf SPECT r/s* [id number] Elba Han Age: 69 Gender: F : 1950 Exam Date: 03/17/2020 07:07 Ordering Phys: Lucille Mackey MD Technologist: ISIDRO Hoover Exam Location: [facility] Indications: Chest pain STRESS TEST [facility] IMAGE PROTOCOL Rest/Stress 1 Lexiscan Day Radiopharmaceutical Dose (mCi) Administration Site Administered by Rest: Tc-99m 10.6 IV ISIDRO Pope Sestamibi Stress:Tc-99m 32.5 IV ISIDRO Hoover Sestamiyodit Rest: 17-Mar-2020 60 Discovery 630 Stress: 17-Mar-2020 45 Discovery 630 0.4mg Lexiscan. Supine position only as patient was unable to lay prone. SPECT RESULTS Technical Quality: Good Raw Data Analysis: Normal Image Corrections: No attenuation or motion correction applied Summed Stress Score: 0 Summed Rest Score: 1 Summed Difference Score: 0 PERFUSION FINDINGS Mildly reduced tracer uptake in the apical wall both at rest and stress. Likely attenuation artifact. Otherwise normal myocardial perfusion with no reversibility is noted. FUNCTIONAL RESULTS (calculated via Gated SPECT) Stress Image LV EF (%): 6 Stress EDV (mL):50 TID: 1.17 Stress ESV (mL):47 FUNCTIONAL FINDINGS: LV systolic function is severely reduced. TID ratio is borderline and is 1.17. IMPRESSIONS 1. Normal myocardial perfusion imaging, attenuation artifact is noted in the apex. Given severely reduced LV function on stress and borderline TID, clinical correlation is required. Cannot rule out balanced ischemia 2. Severely reduced LV systolic function. New Seaman MD (Electronically Signed) Final Date: 17 March 2020 10:39 S
--- NOTE | 2020-03-17 16:42 | PM.PN ---
Subjective Subjective: Interval history: Patient was chest pain-free overnight. Went to stress test this morning and there after about an hour later developed chest pain again. It was resolved by placing Nitro-Bid topically. Cardiac stress test results does not show any evidence of reversible ischemia, however was noted to have severely depressed EF. Echocardiogram remains pending at this time. 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 Continue home medication Toprol-XL, however reduced dose to 12.5 p.o. daily given bradycardia with heart rate 50. Echocardiogram pending results Stress test with severely depressed EF, no fixed reversible defects noted cardiology consult requested with Dr. Neal change to inpatient #Transaminitis with AST ALT elevated, Hepatitis panel negative for acute hepatitis. Ultrasound of the gallbladder was additionally performed which did not show any evidence of cholecystitis. Cholelithiasis was noted. As was fatty liver. Statins stopped for now given transaminitis trending up. #Hypertension: Continue Toprol for now. Add amlodipine 10mg po qd for SBP >160 Full code start DVT ppx with lovenox Attestations Medical Necessity Statement*: unstable angina, abnormal stress test, ongoing chest pain, needs cardiology evaluation Coding Level of Care Code Acute Plaster Tender for Chg Fwd Diagnoses Chest pain R07.9 Elevated LFTs R79.89 Hypertension I10 Unstable angina I20.0
[2020-03-17] MEDS: enoxaparin 40 mg/0.4 mL Syringe SUBCUT (17:47)
--- NOTE | 2020-03-17 20:10 | PC.NURSE ---
Patient's Xanax is med rec states daily. Patient states she takes it twice a day. This has been changed in med rec and in order with Dr. Thompson's order.
[2020-03-17] MEDS: hydroCHLOROthiazide 25 mg Tablet 12.5 MG PO (20:52)
--- NOTE | 2020-03-17 20:52 | PC.NURSE ---
Dr. Neal called nurse's station. Ordered to give Hydrochlorothiazide 12.5 mg x1 now.
--- NOTE | 2020-03-17 22:28 | PC.NURSE ---
Patient is currently resting with eyes closed. Will monitor.
[2020-03-18] VITALS (8 sets, daily range): BP systolic 131–149; BP diastolic 63–84; PULSE 40–68; RESP 15–25; TEMP 36.6–36.7; O2SAT 96–98
[2020-03-18] MEDS: ondansetron 2 mg/ML SDV 2 mL 4 MG IVP (09:18)
[2020-03-18] MEDS: aspirin 81 mg EC Tablet PO (09:23)
[2020-03-18] MEDS: ALPRAZolam 0.5 mg Tablet PO (09:23)
[2020-03-18] MEDS: amlodipine 5 mg Tablet PO (09:24)
[2020-03-18] MEDS: hydroCHLOROthiazide 25 mg Tablet 12.5 MG PO (09:24)
[2020-03-18 10:43] LABS: Anion Gap 12.3 (5-19); Blood Urea Nitrogen 9 mg/dL (8-23); Calcium 9.5 mg/dL (8.5-10.5); Carbon Dioxide 29 mmol/L (22-29); Chloride 103 mmol/L (98-107); Glomerular Filtration Rate 82.7 mL/min (90-130); Glucose 88 mg/dL (65-115); Osmolality Calculated 288 mOsm/kg (285-295); Potassium 4.3 mmol/L (3.5-5.1); Sodium 140 mmol/L (136-145)
--- NOTE | 2020-03-18 11:16 | PM.PN ---
Subjective Subjective: Interval history: Patient was feeling well until this morning when after breakfast she felt a little queasy. No vomiting. No CP. Medications: Reviewed: Yes Medication Review Details: Current Medications Acetaminophen (Tylenol) 650 mg PO Q6H PRN PRN Reason: Mild/Mod Pain Or Temp >/= 101 Last Admin: 03/17/20 20:20 Dose: 650 mg Documented by: Al Hydrox/Mg Hydrox/Simethicone (Maalox) 15 ml PO Q6H PRN PRN Reason: INDIGESTION Alprazolam (Xanax) 0.5 mg PO BID PRN PRN Reason: Anxiety Last Admin: 03/18/20 09:23 Dose: 0.5 mg Documented by: Amlodipine Besylate (Norvasc) 5 mg PO DAILY [facility] Last Admin: 03/18/20 09:24 Dose: 5 mg Documented by: Aspirin (Aspirin Ec) 81 mg PO DAILY [facility] Last Admin: 03/18/20 09:23 Dose: 81 mg Documented by: Enoxaparin Sodium (Lovenox) 40 mg SUBCUT Q24H [facility] Last Admin: 03/17/20 17:47 Dose: 40 mg Documented by: Hydrochlorothiazide (Hctz) 12.5 mg PO DAILY [facility] Last Admin: 03/18/20 09:24 Dose: 12.5 mg Documented by: Morphine Sulfate (Morphine) 2 mg IVP Q6H PRN PRN Reason: SEVERE PAIN Morphine Sulfate (Morphine) 2 mg IVP Q4H PRN PRN Reason: SEVERE PAIN Naloxone HCl (Narcan) 0.1 mg IVP Q2M PRN PRN Reason: OPIATERV Nitroglycerin (Nitro-Bid) 0.5 inch TOPICAL Q6H PRN PRN Reason: chest pain Last Admin: 03/17/20 11:49 Dose: 0.5 inch Documented by: Ondansetron HCl (Zofran) 4 mg IVP Q8H PRN PRN Reason: vomiting, or N/V if npo Ondansetron HCl (Zofran) 4 mg IVP Q6H PRN PRN Reason: NAUSEA AND VOMITING Last Admin: 03/18/20 09:18 Dose: 4 mg Documented by: Ondansetron HCl (Zofran) 4 mg IVP Q2M PRN PRN Reason: NAUSEA Tramadol HCl (Ultram) 50 mg PO TID PRN PRN Reason: Pain Vitals/I&O/Wt Last Vital Signs Temp 97.8 F 03/18/20 07:20 Pulse 58 L 03/18/20 07:20 Resp 15 03/18/20 07:20 BP 149/83 03/18/20 07:20 Pulse Ox 96 03/18/20 07:20 03/17/20 03/18/20 03/18/20 22:59 06:59 14:59 Intake Total 740 / 1460 300 / 1760 360 / 360 Balance 740 / 1460 300 / 1760 360 / 360 Weight last 48 hrs Weight 162 lb Physical Exam Narrative: EXAM NARRATIVE: GENERAL: Averagely built and averagely nourished in no acute distress HEENT: Extraocular movement intact. Pupils equal round reactive to light. No pallor or icterus. NECK: central trachea, no JVD. No carotid bruit. CARDIOVASCULAR SYSTEM: S1-S2 regular. No S3 or S4 present. No murmur rubs or gallops. RESPIRATORY SYSTEM: Equal air entry bilaterally. Fine crackles in right posterior basal field. No wheezes or rhonchi. No use of accessory muscles. ABDOMEN: Soft, nontender and nondistended. Normal bowel sounds present. EXTREMITIES: No cyanosis or clubbing. No edema. No signs of chronic venous insufficiency. 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 No focal neurological deficits. SKIN: Normal turgor and temperature. PSYCH: Normal insight and judgment. Data : 03/17/20 04:10 03/18/20 10:05 A&P Assessment and plan (1) Chest pain: Her blood pressure on arrival was 180/100 and has been running high. -Chest pain could be in setting of elevated blood pressure/ PVC's. -Patient does have few CAD risk factors of age and hypertension. No History of kniwn CAD and is a non-smoker -continue HCTZ and amlodipine on discharge. -BP/HR log x 2 weeks -Event monitor x 2 weeks on discharge -Follow up with me in 1 month. Status: Acute Qualifiers: Chest pain type: unspecified Qualified Code(s): R07.9 - Chest pain, unspecified (2) Hypertension: Status: Acute Qualifiers: Hypertension type: essential hypertension Qualified Code(s): I10 - Essential (primary) hypertension (3) Elevated LFTs: Status: Acute Additional A&P Information Bradycardia: She was on low-dose metoprolol that was stopped PVC's: advised to start potassium 99 mg daily and magnesium oxide 400 mg daily; may have to restart beta blessing at low dose. continue to hold for now. Tachycardia/palpitation: Unspecified; Plan for 2 week event monitor as an outpatient. Cholelithiasis Fatty liver Anxiety Thank you for allowing me to participate in patient's care. Please feel free to call with questions or concerns. Attestations Medical Necessity Statement*: stable to be discharged home from cardiac stand point Coding Level of Care Code Acute Corn Cutter Operator for Jacob Salamancad Diagnoses Chest pain R07.9 Chest pain type: unspecified Hypertension I10 Hypertension type: essential hypertension Elevated LFTs R79.89
[2020-03-18 11:52] LABS: Magnesium 2.1 mg/dL (1.7-2.3)
[2020-03-18 14:02] LABS: Alanine Aminotransferase 204 U/L (0-33); Albumin Level 4.1 g/dL (3.5-5.2); Alkaline Phosphatase 114 IU/L (35-105); Aspartate Amino Transferase 99 U/L (0-32); Total Bilirubin 0.3 mg/dL (0.15-1.2); Total Protein 7.1 g/dL (6.6-8.7)
--- NOTE | 2020-03-18 16:09 | PM.DCS ---
Discharge Providers Date of Admission: 03/17/20 14:48 Date of Discharge: March 18, 2020 Attending Provider at Admission: Lucille Mackey MD Attending Provider at Discharge: Lucille Mackey MD Diagnoses at Discharge Discharge Diagnosis (1) Chest pain: Status: Acute Qualifiers: Chest pain type: unspecified Qualified Code(s): R07.9 - Chest pain, unspecified (2) Hypertension: Status: Acute Qualifiers: Hypertension type: essential hypertension Qualified Code(s): I10 - Essential (primary) hypertension (3) Elevated LFTs: Status: Acute Reason for Visit Reason for Visit: CHEST PAIN Hospital Course Discharge Summary: Patient is a 69-year-old lady with past medical history of hypertension who developed chest pain on March 16, 2020. Her blood pressure during course of admission was running high with systolic between 1 80-200. Due to risk factors by way of hypertension and concern for angina she underwent stress test on March 17, 2020. Initially the stress test was reported as abnormal with severely reduced ejection fraction and cardiology consult was sought. Per cardiology evaluation the reported LVEF of 6% was likely an error. Her echocardiogram returned with normal left ventricular size and systolic function. There were no regional wall motion abnormalities. LVEF was estimated at 60% on the study. There was no diastolic dysfunction. Her chest pain did seem to correlate with episodes of elevated blood pressure. Amlodipine and hydrochlorothiazide were added during the course of admission. Toprol-XL was discontinued due to heart rate running in the 50s, with drop to heart rate of 30s at nighttime. EKG never showed any acute ST-T wave changes but showed sinus bradycardia with first-degree AV block. Patient's chest pain improved during admission, however she continued to complain of intermittent nausea. Her LFTs were noted to be elevated during this admission, ultrasound gallbladder was performed which showed cholelithiasis without any evidence of acute cholecystitis. She has been given a referral to general surgery as an outpatient to address symptomatic gallstones. She is being discharged today in a stable condition. She is chest pain-free. Blood pressure on discharge is 140/84. 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 Discharge Data Data Completed and Pending: Completed Studies During Hospitalization Category Date Time Status Sestamibi Stress Test Request Routi ne Exams 03/17/20 06:27 Completed XR chest 1V blaze ble 15242 Stat Exams 03/16/20 11:20 Completed NM nani perf SPECT r/s* 54035 Routin e Nuc Med 03/17/20 15:50 Completed CV echo complete* [id number] Routine Ultrasound 03/17/20 07:00 Completed US gall bladder 7 6705 Routine Ultrasound 03/16/20 15:50 Completed Pending at discharge Category Date Time Status Sestamibi Stress Test Request Routi ne Exams 03/16/20 15:50 Stop Req Labs from last 24 hours 03/18/20 03/18/20 03/18/20 10:05 10:05 05:00 Sodium 140 Potassium 4.3 Chloride 103 Carbon Dioxide 29 Anion Gap 12.3 BUN 9 Creatinine 0.7 GFR Calculation 82.7 L Glucose 88 Calculated Osmolal ity 288 Calcium 9.5 Magnesium 2.1 Total Bilirubin 0.3 Direct Bilirubin 0.20 AST 99 H ALT 204 H Alkaline Phosphata se 114 H Total Protein 7.1 Albumin 4.1 Globulin 3.0 Vitals: Last Vital Signs Temp 97.8 F 03/18/20 15:37 Pulse 68 03/18/20 15:37 Resp 16 03/18/20 15:37 BP 142/84 03/18/20 15:37 Pulse Ox 98 03/18/20 15:37 Discharge Plan Discharge Patient Disposition: Home Condition: Stable Prescriptions: New amlodipine 5 mg Tablet 5 mg PO DAILY 30 Days Qty: 30 RF: 0 hydrochlorothiazide 25 mg Tablet 12.5 mg PO DAILY 30 Days Qty: 30 RF: 0 nitroglycerin 0.4 mg tablet, sublingual 0.4 mg SUBLINGUAL Q5M PRN (Reason: chest pain) 30 Days Qty: 30 RF: 0 Continued alprazolam [Xanax] 0.5 mg tablet 0.5 mg PO BID PRN (Reason: Anxiety) RF: 0 aspirin 81 mg Tablet,Delayed Release (Dr/Ec) 81 mg PO DAILY RF: 0 tramadol 50 mg tablet 50 mg PO TID PRN (Reason: Pain) RF: 0 Sinus and Allergy PE 4-10 mg Tablet 1 tab PO Q4H PRN (Reason: Allergy Symptoms) RF: 0 Discontinued metoprolol tartrate 25 mg tablet 25 mg PO DAILY RF: 0 ibuprofen 200 mg Capsule 200 - 400 mg PO Q4H PRN (Reason: Pain) RF: 0 fluticasone propionate 50 mcg/actuation spray,suspension See Rx Instructions .ROUTE .COMPLEX RF: 0 Discharge Orders: Discharge Order (Routine); Ordered 03/18/20 Ordered By: Lucille Mackey Referrals: Konstantin Prieto MD [Physician] - 2 weeks (you have an appt with dr prieto on 04/01/20 at 10:00 for your gallbladder.their number is [phone] [facility]) Leana Rojas MD [Physician] - 7-10 days (dr rojas (cardiology) office will call you with an appt.if you have not heard from them by saturday afternoon..call their office at [phone].you will also get an appt for a 24 hour hert monitor) Jackson,REBEKA De La Rosa [Family Provider] - (you have an appt with [facility] 03/25/20 at 10:15.the office number is [phone]) Discharge Diet: Usual diet Discharge Activity: Resume usual activity Patient Instructions: Metoprolol (By mouth), Hydrochlorothiazide (By mouth), Amlodipine (By mouth), Hypertension, Chest Pain (DC), Chest Pain Stoplight Activity Restrictions/Additional Instructions: Case management will call to schedule 24-hour Holter. Follow-up with your primary care doctor within the week. 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
--- NOTE | 2020-03-18 16:11 | PC.NURSE ---
discharge instructions given and explained.pt verb understanding of instructions.medicATIONS PHONED TO [facility].discarged via w/c to exit.daughter to drive pt home
== END 2020-03-18 16:11 | disposition home or self-care (01) | DRG 311 ==
LOC: ER 14:29 → CSU 15:12
PROVIDERS: Family Medicine; Internal Medicine Cardiovascular Disease; Admitting Provider Student in an Organized Health Care Education/Training Program; Family Provider Nurse Practitioner Family; Visit Provider Student in an Organized Health Care Education/Training Program
DX: I20.0 Unstable angina (principal); I10 Essential (primary) hypertension; I44.0 Atrioventricular block, first degree; K80.20 Calculus of gallbladder without cholecystitis without obstruction; K76.0 Fatty (change of) liver, not elsewhere classified; F41.9 Anxiety disorder, unspecified; Z79.82 Long term (current) use of aspirin
CPT/HCPCS: 12345; 36415; 71045; 76705; 78452; 80048; 80053; 80061; 80076; 83036; 83735; 83880; 84443; 84484; 85025; 85378; 86141; 86705; 86706; 86709; 86803; 87340; 93005; 93017; 93306; 96372; 96375; 99283; A9500; G0378; J1650; J2405; J2785

== ENCOUNTER → 2020-03-25 10:24 | Outpatient (BNVA) | payer MEDICARE, OTHER, SELFPAY | PROVIDERS: Family Provider Nurse Practitioner Family; PCP Nurse Practitioner Family; Visit Provider Internal Medicine Cardiovascular Disease | DX: I49.3 Ventricular premature depolarization (principal); I10 Essential (primary) hypertension; R79.89 Other specified abnormal findings of blood chemistry | CPT/HCPCS: 80053; 83735 ==

== ENCOUNTER → 2020-04-02 09:31 | Outpatient (BNVA) | payer MEDICARE, OTHER, SELFPAY | PROVIDERS: Family Provider Nurse Practitioner Family; PCP Nurse Practitioner Family; Visit Provider Surgery | DX: Z01.812 Encounter for preprocedural laboratory examination (principal) | CPT/HCPCS: 87635 ==

== ENCOUNTER 2020-04-06 05:53 | Day surgery (SDC) | payer MEDICARE, OTHER, SELFPAY ==
[2020-04-04 09:53] VITALS: BMI 26.4
[2020-04-06] VITALS (10 sets, daily range): BP systolic 163–191; BP diastolic 82–94; PULSE 43–63; RESP 14–18; TEMP 36.1–36.9; O2SAT 98–100
--- NOTE | 2020-04-06 06:21 | ANES.PREANE2 ---
Pre-Anesthetic Assessment Pre-Anesthetic Assessment: Height/Weight: Height 1.63 m Weight 69.853 kg Preop Diagnosis: Cholelithiasis Proposed Procedure: Operation Date: 04/06/20 07:00 Proposed Procedures p Laparoscopic Possible Open Cholecystectomy 32940 K80.20(Not Applicable) - Konstantin Prieto MD Was Beta Aruna taken within 24 hours: Yes Social: Social History: No alcohol and No tobacco Exam: Pre-Anes Outpt Exam: alert, oriented x 3, clear to auscultation bilaterally and regular rate & rhythm Airway: Submandibular: WNL Cervical ROM: WNL MP: 2 Pulmonary: Pulmonary: None reported CV/HEM: CV/HEM: HTN Comments: Chest pain of undetermined etiology; negative nuclear perfusion scan. : : None reported Hepatic: Hepatic: None reported GI: GI: None reported Metabolic: Metabolic: None reported Neuropsych: Neuropsych: Anxiety Anesthetic Plan: ASA status: 3 Anesthesia: General PFSH Anesthesia PFSH: Medical History Hypertension Seasonal allergies Surgical History (Updated 04/05/20 @ 10:01 by Konstantin Prieto MD) History of appendectomy History of back surgery History of colonoscopy History of hysterectomy Family History Other Cancer Heart disease Denies family history of Bleeding disorder Social History Smoking and tobacco status: never smoked Second hand smoke exposure: No Smoking risk assessment/counseling performed?: No Alcohol intake: never Desire information about alcohol rehabilitation?: No Counseling given: No Desire information about substance/drug rehabilitation?: No Counseling given: No Adopted: No Caregiver/support person: No Lives independently: Yes Household members: none Housing: House Marital status: Single service: No Current occupational status: employed History of recent travel: No Current gender identity: Female Data Anesthesia Cardiac Studies: Holter Monitor 03/25/20
[2020-04-06] MEDS: sodium chloride 0.9% 1,000 ML 30 ML IV (06:30)
--- NOTE | 2020-04-06 07:03 | W.PM.OPSUD ---
Surgery/Procedure H&P Update DATE OF PROCEDURE: April 06, 2020 DATE H&P PERFORMED: 04/01/20 H&P UPDATE INFORMATION: I have reviewed H&P completed within last 30 days, I have examined patient prior to procedure and No changes to prior documentation PREOP DIAGNOSIS: Cholelithiasis PLANNED PROCEDURE: Operation Date: 04/06/20 07:00 Proposed Procedures p Laparoscopic Possible Open Cholecystectomy 39211 K80.20(Not Applicable) - Konstantin Prieto MD
--- NOTE | 2020-04-06 07:57 | SUR.PHASEI ---
RECIEVED PT TO PACU AWAKE ALERT WITH GOOD RESP NOTED, PT DENIES PAIN AND NAUSEA, PT ON RA. VSS ABD SOFT.PT RECIEVED NARCAN IN OR AT 0745.
--- NOTE | 2020-04-06 08:26 | SUR.PHASEI ---
0918 PT TO OPS AWAKE ALERT WARM BLANKETS X 3 PT DENIES NAUSEA AND PAIN IN PACU, VSS ABD SOFT HANDOFF AT BEDSIDE AND PT NOW C/O OF PAIN OF 4 PT OK WITH PO PAIN MEDS NURSE INFORMED OF NARCAN GIVEN AT 0745 IN OR.
[2020-04-06] MEDS: HYDROcodone-acetaminophen 5-325 mg Tablet 1 TAB PO (08:54)
--- NOTE | 2020-04-06 09:31 | ECG_ITS ---
[facility] Test Date: 2020-04-06 Pat Name: Elba Han Department: Room: Gender: Female Rn Recovery: : 1950 Requested By: Pancho Villanueva Order Number: [id number] Jaspal MD: Bella Aly M.D. Measurements Intervals [place] Rate: 48 P: 10 [place]: 274 QRS: -1 QRSD: 89 T: 0 QT: 468 QTc: 419 Interpretive Statements SINUS BRADYCARDIA WITH FIRST DEGREE AV BLOCK Compared to ECG 03/16/2020 17:30:19 No significant changes Electronically Signed On 04-06-2020 21:39:33 CDT by Bella Aly M.D. [id number]
[2020-04-06] MEDS: ondansetron 2 mg/ML SDV 2 mL 4 MG IVP (09:40)
[2020-04-06] MEDS: promethazine 25 mg/mL SDV 1 mL 12.5 MG IM (10:43)
--- NOTE | 2020-04-06 13:53 | PM.OP ---
Operative Report Date of procedure: April 06, 2020 Pre-op Diagnosis: Cholelithiasis Post-op diagnosis: same Procedure Done: Laparoscopic cholecystectomy Specimens removed/disposition: Gallbladder Surgeon: Konstantin Prieto Anesthesia: General Estimated blood loss (mL): 10 Condition: stable Disposition: PACU Procedure: The patient was taken to the operating room and was intubated under general anesthesia. After the antibiotic had been administered, the abdomen was prepped and draped in a sterile manner. Using a #15 blade, a 1 centimeter infraumbilical curvilinear incision was made and using an open Mikie technique the peritoneal cavity was entered. A 10 millimeter port was placed and 15 millimeters of pneumoperitoneum was created. A 10 millimeter, 30 degrees scope was then introduced. Three 5 millimeter ports were placed in the epigastric, midclavicular and the anterior axillary line two fingerbreadths below the costal margin on the right side under the direct visualization. Ratcheted forceps were introduced into the lateral most port and was used to retract the fundus of the gallbladder cephalad and using forceps the infundibulum of the gallbladder was retracted laterally. Using L-hook cautery the peritoneum overlying the Calot's triangle was opened medially and laterally until the cystic duct and the cystic artery were skeletonized. Dissection was carried along the body of the gallbladder and after ensuring critical view of safety, 4 clips applied on the cystic duct and 3 clips applied on the cystic artery and cut leaving, 3 clips on the remaining portion of the duct and 2 clips on the remaining portion of the artery. The rest of the gallbladder was dissected off the liver using L-hook cautery. There was no bleeding or bile leaking noted from the gallbladder fossa and the clips appeared to be in place. An EndoCatch bag was introduced to remove the gallbladder. All the ports were removed under direct visualization and there was no bleeding noted from the port sites. The fascia of the umbilicus was closed using [id number] 0 Vicryl sutures and the subcutaneous tissue was approximated using 3-0 Vicryl sutures. The skin at all four ports were closed using 4-0 Monocryl and Dermabond. A total of 10 millimeters of 0.5% Marcaine was infiltrated around the port sites. The patient was stable throughout the procedure.
== END 2020-04-06 10:49 | disposition home or self-care (01) ==
PROVIDERS: PCP Nurse Practitioner Family; Visit Provider Surgery
PROC: 0FT44ZZ Resection of Gallbladder, Percutaneous Endoscopic Approach (ICD-10-PCS; CPT 47562; principal; 2020-04-06 07:00)
DX: K80.10 Calculus of gallbladder with chronic cholecystitis without obstruction (principal); I10 Essential (primary) hypertension; F41.9 Anxiety disorder, unspecified; Z79.82 Long term (current) use of aspirin
CPT/HCPCS: 47562; 12345; 88304; 93005; 96372; 96374; J0690; J1100; J2310; J2405; J2550; J2704; J2710; J3010; J3490; J7030